=== PATIENT | male | born 1950 | race Caucasian/White ===

== ENCOUNTER → 2023-12-09 09:13 | Outpatient (REF) | payer OTHER, SELFPAY | LOC: RAD 09:13 | PROVIDERS: ATTENDING PHYSICIAN Family Medicine | DX: R79.89 Other specified abnormal findings of blood chemistry (principal); E80.6 Other disorders of bilirubin metabolism; R74.8 Abnormal levels of other serum enzymes | CPT/HCPCS: 76700 ==

== ENCOUNTER → 2024-01-04 08:00 | Outpatient (REF) | payer OTHER, SELFPAY | LOC: PAVMRI 08:00 | PROVIDERS: ATTENDING PHYSICIAN Family Medicine | DX: E83.19 Other disorders of iron metabolism (principal); K76.89 Other specified diseases of liver; K76.0 Fatty (change of) liver, not elsewhere classified | CPT/HCPCS: 74183; A9575 ==

== ENCOUNTER → 2024-02-26 09:22 | Outpatient (REF) | payer OTHER, SELFPAY | LOC: RCS 09:22 | PROVIDERS: ATTENDING PHYSICIAN Family Medicine | DX: R01.1 Cardiac murmur, unspecified (principal) | CPT/HCPCS: 93306 ==

== ENCOUNTER → 2024-07-25 11:23 | Outpatient (REF) | payer OTHER, SELFPAY | LOC: RAD 11:23 | PROVIDERS: ATTENDING PHYSICIAN Family Medicine | DX: Z96.652 Presence of left artificial knee joint (principal); M25.60 Stiffness of unspecified joint, not elsewhere classified | CPT/HCPCS: 73564 ==

== ENCOUNTER → 2025-02-01 13:38 | Outpatient (REF) | payer OTHER, SELFPAY | LOC: PAVMRI 13:38 | PROVIDERS: ATTENDING PHYSICIAN Student in an Organized Health Care Education/Training Program | DX: D13.5 Benign neoplasm of extrahepatic bile ducts (principal); K86.89 Other specified diseases of pancreas | CPT/HCPCS: 74183; A9575 ==

== ENCOUNTER → 2025-03-20 14:05 | Outpatient (REF) | payer OTHER, SELFPAY | LOC: HWRAD 14:05 | PROVIDERS: ATTENDING PHYSICIAN Internal Medicine Nephrology; FAMILY PHYSICIAN Family Medicine | DX: N28.1 Cyst of kidney, acquired (principal) | CPT/HCPCS: 76775 ==